=== PATIENT | male | born 1985 | race Caucasian/White ===

== ENCOUNTER 2024-12-25 10:36 | Outpatient (AMB) | payer OTHER, SELFPAY ==
--- OUTSIDE RECORDS SUMMARY | 2024-12-24 08:30 | XMS_ITS | Encounter Summary ---
Author Organization [employer] Address [address] [place] [address] Care Team Providers Care Senior Architect/Design Manager Name Role Phone Ronnie Woods MD Primary Care Provider [phone] Reason for Visit * Reason Comments Follow-up Encounter Details Date Type Department Care Team ([facility] st Contact Info) Description 12/24/2024 8:30 AM EDT Office Visit Internal Medicine - [place] [address] [facility] [address] [place] [id number] Ronnie Woods MD [address] [facility] [address] [place] [address] Type 2 diabetes mellitus without complication, without long-term current use of insulin (CMS/HCC V24, CMS/HCC V28) (Primary Dx); Hypertriglyceridemia Social History Tobacco Use Types Packs/Day Years Used Date Smoking Tobacco: Former Cigarettes 0 2013 - 09/30/2015 Smokeless Tobacco: Never Alcohol Use Standard Drinks/Week Comments No 0 (1 standard drink = 0.6 oz pur e alcohol) Sex and Gender Information Value Date Recorded Sex Assigned at Not on file Legal Sex Male 9:07 AM EST Gender Identity Not on file Sexual Orientation Not on file documented as of this encounter Last Filed Vital Signs Vital Sign Reading Time Taken Comments Blood Pressure 118/60 12/24/2024 8:22 AM EDT Pulse 89 12/24/2024 8:22 AM EDT Temperature 35.7 C (96.3 F) 12/24/2024 8:22 AM EDT Respiratory Rate - - Oxygen Saturation 98% 12/24/2024 8:22 AM EDT Inhaled Oxygen Concentration - - Weight 89.7 kg (197 lb 12.8 oz) 12/24/2024 8:22 AM EDT Height 170.2 cm (5' 7 ) 12/24/2024 8:22 AM EDT Body Mass Index 30.98 12/24/2024 8:22 AM EDT documented in this encounter Ordered Prescriptions Prescription Sig Dispense Quantity Refills Last Filled Start Date End Date acetaminophen (Tylenol Extra Strength) 500 mg tablet Take 1.5 tablets (750 mg total) by mouth every 8 (eight) hours if needed for mild pain for up to 20 days. 60 tablet 3 12/24/2024 documented in this encounter Progress Notes * Ronnie Woods MD - 12/24/2024 8:30 AM EDT COMPLAINT medication review and testing. IDENTIFIER: Rusty Tracy is a 39 y.o. old male. HPI: Diabetes, blood sugars are still high, Shaista just started recently on metformin. Hyperlipidemia ,stable. ROS: GENERAL: No malaise, significant weight loss or fever RESPIRATORY: No cough, wheezing or shortness of breath CARDIOVASCULAR: No chest pain, leg swelling or palpitations GI: No abdominal discomfort, blood in stools or black stools PAST MEDICAL HISTORY: Patient Active Problem List Diagnosis Date Noted GERD (gastroesophageal reflux disease) 02/27/2024 Type 2 diabetes mellitus without complication, without long-term current use of insulin ([facility] V24, [facility] V28) 02/15/2024 Hypertriglyceridemia 02/15/2024 Cerebellar cyst 02/15/2024 Vertigo 02/15/2024 Past Surgical History: Procedure Laterality Date CATARACT EXTRACTION Bilateral HISTORICAL CATARACT REMOVAL OTHER SURGICAL HISTORY 09/18/2023 right posterior fossa craniotomy for resection of cerebellar cyst, Dr. Fraga Path:. Negative for malignancy SOCIAL HISTORY: Social History Tobacco Use Smoking status: Former Current packs/day: 0.00 Types: Cigarettes Start date: 2013 Quit date: 09/30/2015 Years since quittin.2 Smokeless tobacco: Never Substance Use Topics Alcohol use: No FAMILY HISTORY: Family History Problem Relation Name Age of Onset Nephrolithiasis Mother uncle, MEDICATIONS DISCONTINUED/REORDERED: Medications Discontinued During This Encounter Medication Reason gabapentin (NEURONTIN) 100 mg capsule Therapy completed ACTIVE MEDICATIONS: Outpatient Medications Marked as Taking for the 12/24/24 encounter (Office Visit) with Ronnie Woods MD Medication Sig Dispense Refill amitriptyline (ELAVIL) 25 mg tablet Take 1 tablet (25 mg total) by mouth at bedtime. 30 each 11 blood sugar diagnostic (FreeStyle Lite Strips) test strip Check blood sugar twice a day 200 strip 5 blood-glucose meter kit 1 Each by Does not apply route daily. blood-glucose meter kit 1 Each by Does not apply route daily. fenofibrate (TRICOR) 48 mg tablet Take 1 tablet (48 mg total) by mouth 1 (one) time each day. 30 each 5 freestyle (FreeStyle Lancets) 28 gauge lancets To check sugars once daily E11.9 100 each 3 hydrOXYzine HCL (ATARAX) 10 mg tablet Take 1 tablet (10 mg total) by mouth at bedtime as needed foranxiety (insomnia). 30 tablet 3 ibuprofen (ADVIL,MOTRIN) 800 mg tablet TAKE 1 TABLET BY MOUTH EVERY 8 HOURS NEEDED meclizine (ANTIVERT) 12.5 mg tablet Take 1 Tablet by mouth daily as needed (dizziness). melatonin 5 mg capsule Take 1 capsule by mouth at bedtime as needed (insomnia). 30 each 3 metFORMIN (GLUCOPHAGE) 1,000 mg tablet Take 1 Tablet by mouth 2 times daily (with meals). 180 tablet 3 tirzepatide (Mounjaro) 2.5 mg/0.5 mL injection Inject 0.5 mL (2.5 mg total) under the skin every 7 (seven) days. 2 mL 0 ALLERGIES: No Known Allergies PHYSICAL EXAM: Vitals: 12/24/24 0822 BP: 118/60 Pulse: 89 Temp: 35.7 ??C (96.3 ??F) SpO2: 98% APPEARANCE: Alert and in no acute distress EARS: External ears normal. HEART: RRR with normal S1 and S2, no murmurs LUNG: clear to auscultation LABS: No results found for: WBC , HGB , HCT , MCV Lab Results Component Value Date NA 136 12/11/2024 K 4.0 12/11/2024 CO2 27 12/11/2024 CL 104 12/11/2024 BUN 10 12/11/2024 No results found for: TSH Lab Results Component Value Date HGBA1C 10.8 (H) 12/11/2024 CHOL 199 07/03/2024 HDL 37 (L) 07/03/2024 TRIG 295 (H) 07/03/2024 No components found for: URINELEUK , URINENITR , URINEPRO , URINEPH , URINEBLD , URINESG , URINEKET , URINEBILI , URINEGLUC IMAGING: IMPRESSION: 1. Type 2 diabetes mellitus without complication, without long-term current use of insulin ([facility], [facility] V28) 2. Hypertriglyceridemia PLAN: Diabetes ,slow improvement started Mounjaro recently, continue metformin. Hyperlipidemia, stable onTricor. Recent A1c was 10.8. triglycerides 295. documented in this encounter Plan of Treatment Upcoming Encounters Date Type Department Care Team (Late st Contact Info) Description 02/12/2025 10:45 AM EST Office Visit Endocrinology [address] [place] [address] Lilliana Gutiérrez PA [address] [place] [address] documented as of this encounter Goals Goal Patient Goal Type Associated Problems Recent Progress Patient-Stated? Author PT LTG -8 visits General No Makenzie Li PT Note: Patient is able to improve FGA score by 8 points Patient is able to ambulate with straight cane in L UE Patient is able to achieve 5/5 knee flexion and extension strength bilaterally Patient is able to self correct balance when turning to look at various objects in 50ft. 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 Therapy completed 12/24/2024 documented as of this encounter Care Teams Senior Architect/Design Manager Relationship Specialty Start Date End Date Ronnie Woods MD [address] [place] [address] PCP - General 10/10/23 documented as of this encounter
[2024-12-25 11:09] VITALS: BMI 31.3
--- NOTE | 2024-12-25 11:09 | A.OFFVIS_ITS ---
VS Expanded 12/25/24 11:09 01/01/25 10:06 Height 5 ft 7 in 5 ft 7 in Weight 199 lb 15.348 oz 200 lb BMI 31.3 31.3 Intake Visit Reasons: T2DM Nutrition Presentation Details: Pt presents for MNT fort T2DM Pt presens with mother during this appt. Pt admits to increase intake of empty calorie foods however expresses interest in improving diet for gluc control. Reports recent rx for Mounjaro which he started on Monday. food frequency fruit: 0-1/d dairy: 1/d ve/wk (non starchy) starches >30 /d fish :0/wk beverages: water, soda (diet/non), juices etoh/smoking-denies ULZ-Kxczrsu-Xn.Jeor Equation Height: 5 ft 7 in Weight: 200 lb Resting Metabolic Rate: 1783.02 Calculated Activity Level: Sedentary Calories Needed to Maintain Weight: 2139.62 Diagnosis Nutrition problem #1: food nutri know defi As related to (etiology) #1: diagnosis As evidenced by (sign/symptom) #1: knowledge deficit of diet Assessment & Plan Assessment & Plan (1) T2DM (type 2 diabetes mellitus): Code(s): E11.9 - Type 2 diabetes mellitus without complications Category: Medical Plan: current wt: 91 kg ( 12/26) est kcal needs as per MSJ: 2100 est protein needs as per 1 g/kg BW: 90 est fluid needs as per 30 ml/kg BW: 2700 Recommended fiber > 12 g /day and gradually increase up to 25-28 g /day or as tolerated NA< 2300 mg/d Nutrition topics discussed : Reviewed (R), Pt verbalized understanding (V) , not applicable (N/A) R, A : Healthy Plate Method Concept: R, : Carbohydrates: food sources of carbohydrates, relationship of carbohydrates to blood glucose, fatty liver GI health. Recommended total amount of carbohydrates per meals and snack. Differences between simple carbohydrates and complex carbohydrates R, : Lean protein foods including vegan , vegetarian sources of protein. Benefits of protein (including but not limited to healing, nutritional value , benefits in weight loss, glucose control R, V, N/A: Fats : Source of fats, benefits of fats. Difference between saturated and unsaturated fats. Saturated fats and its contribution to inflammation R, V, N/A: Fiber: food sources and role of fiber in the diet (including but not limited to its role as a prebiotic, benefits in constipation, role in IBS , role in glucose control and cholesterol level) R, : Hydration: role of hydration and prevention of dehydration or over hydration. Foods and water content. R, V, N/A: Vitamins and Minerals in foods and supplements R, : Interpreting food labels, including serving size, macronutrients, vitam ins, minerals, allergens, ingredient list , % daily value R, : Mindful eating strategies Patient Instructions: Work on reducing total carb to less than 70 g at meal and combine with lean protein following healthy plate method choose low sugar beverages -see list of options Coding Level of Care Code Nutr Indiv Intake (33126) Diagnoses T2DM (type 2 diabetes mellitus) E11.9 Time Spent (min) 30
--- OUTSIDE RECORDS SUMMARY | 2024-12-25 13:13 | XMS_ITS ---
Author Name [facility] Organization Unknown Care Team Organization Name Specialty Phone Email Start Date End Da te [facility] Asa Weinstein Primary [facility] 02/08/2022 11/20/2023
--- OUTSIDE RECORDS SUMMARY | 2024-12-25 13:13 | XMS_ITS | Clinical Summary ---
Author Organization [facility] Address [address] [place] [address] Care Team Providers Care Log Washer Name Role Phone Unavailable Primary Care Provider Unavailabl e Allergies No known active allergies Medications Medication Sig Dispensed Refills Start Date End Date Status metFORMIN (GLUCOPHAGE) tablet 1000 mg 0 04/09/2019 Active naproxen (NAPROSYN) 500 MG tablet 0 03/14/2019 Active Active Problems No known active problems Family History Medical History Relation Name Comments Diabetes Mother Relation Name Status Comments Mother Social History Tobacco Use Types Packs/Day Years Used Date Smoking Tobacco: Never Smokeless Tobacco: Never Alcohol Use Standard Drinks/Week Comments No 0 (1 standard drink = 0.6 oz pur e alcohol) Sex and Gender Information Value Date Recorded Sex Assigned at Not on file Gender Identity Not on file Sexual Orientation Not on file Job Start Date Occupation Industry Not on file Not on file Not on file Last Filed Vital Signs Vital Sign Reading Time Taken Comments Blood Pressure - - Pulse - - Temperature - - Respiratory Rate - - Oxygen Saturation - - Inhaled Oxygen Concentration - - Weight 114.3 kg (252 lb) 04/30/2019 4:04 PM EST Height 172.7 cm (5' 8 ) 04/30/2019 4:04 PM EST Body Mass Index 38.32 04/30/2019 4:04 PM EST Plan of Treatment Health Maintenance Due Date Last Done Comments Hepatitis B Vaccines (1 of 3 - 3-dose series) 1985 Hepatitis C Screening 1985 COVID-19 Vaccine (#1) 03/31/1986 Pneumococcal Vaccine (1 of 2 - PCV) 09/30/1991 Depression Screening 1997 BMI Counseling 09/30/2003 Preventative Health Evaluation 09/30/2003 DTap / Tdap / Td (1 - Tdap) 2004 Influenza Vaccine (#1) 2024 RSV Ped < 20 months Aged Out No longe r eligible based on patient's age to complete this topic
--- OUTSIDE RECORDS SUMMARY | 2024-12-25 13:13 | XMS_ITS | Clinical Summary ---
Author Organization [address] [facility] Address [address] [place] [address] Phone Care Team Providers Care Glued Wood Tester Name Role Phone Ronnie Woods MD Primary Care Provider [phone] Allergies No known active allergies Medications meclizine (ANTIVERT) 12.5 mg tablet Take 1 Tablet by mouth daily as needed (dizziness). 4 Active ibuprofen (ADVIL,MOTRIN) 800 mg tablet TAKE 1 TABLET BY MOUTH EVERY 8 HOURS NEEDED 4 Active blood-glucose meter kit 1 Each by Does not apply route daily. 4 Active blood-glucose meter kit 1 Each by Does not apply route daily. 4 Active freestyle (FreeStyle Lancets) 28 gauge lancetsIndicatio ns:Type 2 diabetes mellitus with hyperglycemia, without long-term current use of insulin ([facility] V24, [facility] V28) To check sugars once daily E11.9 100 each 3 5 Active melatonin 5 mg capsuleIndicatio ns:Insomnia, unspecified type Take 1 capsule by mouth at bedtime as needed (insomnia). 30 each 3 5 Active hydrOXYzine HCL (ATARAX) 10 mg tabletIndication s:Insomnia, unspecified type Take 1 tablet (10 mg total) by mouth at bedtime as needed for anxiety (insomnia). 30 tablet 3 5 Active amitriptyline (ELAVIL) 25 mg tabletIndication s:Other migraine with status migrainosus, intractable,Inso mnia, unspecified type Take 1 tablet (25 mg total) by mouth at bedtime. 30 each 5 08/24/19 26 Active fenofibrate (TRICOR) 48 mg tabletIndication s:Hypertriglycer idemia Take 1 tablet (48 mg total) by mouth 1 (one) time each day. 30 each 5 5 02/20/20 25 Active blood sugar diagnostic (FreeStyle Lite Strips) test stripIndications :Type 2 diabetes mellitus without complication, with long-term current use of insulin ([facility] V24, [facility] V28) Check blood sugar twice a day 200 strip 5 5 Active metFORMIN (GLUCOPHAGE) 1,000 mg tablet Take 1 Tablet by mouth 2 times daily (with meals). 180 tablet 3 5 Active tirzepatide (Mounjaro) 2.5 mg/0.5 mL injectionIndicat ions:Type 2 diabetes mellitus with hyperglycemia, without long-term current use of insulin ([facility] V24, [facility] V28) Inject 0.5 mL (2.5 mg total) under the skin every 7 (seven) days. 2 mL 5 Active acetaminophen (Tylenol Extra Strength) 500 mg tablet Take 1.5 tablets (750 mg total) by mouth every 8 (eight) hours if needed for mild pain for up to 20 days. 60 tablet 3 5 01/14/20 25 Active metFORMIN (GLUCOPHAGE) 1,000 mg tablet Take 1 Tablet by mouth 2 times daily (with meals). 4 12/14/19 25 Discontinu ed(Reorder ) gabapentin (NEURONTIN) 100 mg capsule Take 1 capsule (100 mg total) by mouth 2 (two) times a day. 12/25/19 25 Discontinu ed(Therapy completed) glipiZIDE (GLUCOTROL XL) 5 mg 24 hr tablet Take 1 tablet by mouth twice daily 60 each 5 5 12/14/19 25 Discontinu ed(Formula ry change) Active Problems Problem Noted Date Diagnosed Date GERD (gastroesophageal reflux disease) 4 Type 2 diabetes mellitus wit hout complication, without long-term current use of insulin ([facility] V24, [facility] V28) 02/15/2024 Hypertriglyceridemia 02/15/2024 Cerebellar cyst 02/15/2024 Assessment & Plan (05/14/2024 10:04 AM EST): Mr. Tracy is benefiting from physical therapy for his gait and balance and he should continue as long as possible. He continues to have right-sided headaches stemming from the area of his incision and craniectomy. So far, he is not had any improvement from the right occipital block but does feel the gabapentin is helping. Encouraged him to follow-up with Dr. Griffiths's office to see if they have anything else to offer and also instructed him on how to increase his dose of gabapentin until he finds what works for him with no side effects, up to 3 tablets 3 times per day. There was no finding on pathology and no need for further surgery. It still unexplained what caused this cerebellar cyst. Assessment & Plan (03/12/2024 11:01 AM EST): Patient is approximately 6 months s/p right posterior fossa craniotomy for resection of cerebellar cyst, Path:. Negative for malignancy. He is still participating in physical therapy twice a week, does feel over time his balance is improving, still walks with a cane and has some dysmetria. He called the office because he has persistent right sided headaches, tenderness palpating right scalp, light sensitivity with the right eye. He would rated his headache 5-6/10. At times when he is bending over his right cheek feels cold. He had brain MRI with and without contrast 03/10/2024, no evidence of recurrent cyst or mass, postop changes right suboccipital craniotomy, small area of encephalomalacia in the right cerebellar hemisphere. I reviewed the March MRI, compared with September MRI with patient and his mother on the computer. Mr. Tracy has had some improvement in his balance and walking, has persistent right sided headache, seems it could be right occipital neuralgia. I will see if Dr. Fraga would be comfortable with him trying an occipital nerve block, since it is near the area of his craniotomy bone window. We also talked about possibly neurology consult for his headache. We talked about trying acupuncture. In physical therapy they can do some massage to the upper trapezius and neck muscles to see if this helps as well. I will call him with an update after reviewing his case with Dr. Fraga. All questions answered. Vertigo 02/15/2024 Encounters Date Type Department Care Team Description 12/24/2024 8:30 AM EDT Office Visit Internal Medicine [facility] [address] [phone] Ronnie Woods MD Type 2 diabetes mellitus without complication, without long-term current use of insulin ([facility] V24, [facility] V28) (Primary Dx); Hypertriglyceridemia 12/13/2024 10:45 AM EDT Office Visit Endocrinology [address] [phone] Lilliana Gutiérrez PA Type 2 diabetes mellitus with hyperglycemia, without long-term current use of insulin ([facility] V24, [facility] V28) (Primary Dx) 11/11/2024 10:00 AM EDT Treatment [address] [phone] Pavithra Arriaza, PT Neurologic gait dysfunction (Primary Dx) 11/04/2024 10:00 AM EDT Treatment [address] [phone] Girish Churchill, SHEET HEATER Cerebellar cyst (Primary Dx); Neurologic gait dysfunction 10/31/2024 10:00 AM EDT Treatment [address] [phone] Pavithra Arriaza, PT Cerebellar cyst (Primary Dx) 10/29/2024 10:00 AM EDT Treatment [address] [phone] Pavithra Arriaza, PT Neurologic gait dysfunction (Primary Dx) 10/25/2024 10:00 AM EDT Treatment [address] [phone] Girish Churchill, SHEET HEATER Vertigo (Primary Dx); Weakness of both lower extremities 10/23/2024 11:30 AM EDT Treatment [address] [phone] Girish Churchill, SHEET HEATER Vertigo (Primary Dx) 10/17/2024 11:30 AM EDT Treatment [facility] [address] [phone] GuybrandtGirish, SHEET HEATER Vertigo (Primary Dx); Weakness of both lower extremities 09/25/2024 10:30 AM EDT Evaluation [address] [phone] SharonkaMakenzie santillan, PT Vertigo; Weakness of both lower extremities from Last 3 Months Immunizations Name Administration Dates Next Due Influenza trivalent, 0.5mL, preservative free (Fluarix; FluLaval; Fluzone) ages 6mo and older (Afluria) 3 years and older 05/27/2016 Tdap Tetanus diptheria acell ular pertussis (Boostrix; Adacel) 7yo and older 05/27/2016 Surgical History Surgery Date Site/Laterality Comments CATARACT EXTRACTION Bilateral HISTORICAL CATARACT REMOVAL OTHER SURGICAL HISTORY 09/18/2023 right posterior fossa craniotomy for resection of cerebellar cyst, Dr. Fraga Path:. Negative for malignancy Medical History Medical History Date Comments GERD (gastroesophageal reflu x disease) DX:GERD (gastroesophageal re flux disease) History of kidney stones DX:Hist ory of kidney stones; COMMENT: right ureteroscopy with laser lithotripsy of 7mm right kidney stone 05/20 Type 2 diabetes mellitus (CM S/HCC V24, CMS/HCC V28) 11/27/2017 DX:Type 2 diabetes mellitus (HCC) Family History Medical History Relation Name Comments Nephrolithiasis Mother uncle, Relation Name Status Comments Mother Social History Tobacco Use Types Packs/Day Years Used Date Smoking Tobacco: Former Cigarettes 0 2013 - 09/30/2015 Smokeless Tobacco: Never Tobacco Cessation:Counseling Given: Not Answered Alcohol Use Standard Drinks/Week Comments No 0 (1 standard drink = 0.6 oz pur e alcohol) Sex and Gender Information Value Date Recorded Sex Assigned at Not on file Legal Sex Male 9:07 AM EST Gender Identity Not on file Sexual Orientation Not on file Obstetrics History Last Filed Vital Signs Vital Sign Reading [...] Mass Index 30.98 12/24/2024 8:22 AM EDT Plan of Treatment Upcoming Encounters Date Type Department Care Team (Late st Contact Info) Description 02/12/2025 10:45 AM EST Office Visit Endocrinology - [place] [address] [place] [phone] Lilliana Gutiérrez PA [address] [place] [address] Health Maintenance Due Date Last Done Comments Diabetes: Annual Foot Exam 09/30/1995 Hepatitis B Vaccines (1 of 3 - 19+ 3-dose series) 2004 Pneumococcal Vaccine: Pediatrics (0 to 5 Years) and At-Risk Patients (6 to 49 Years) (1 of 2 - PCV) 2004 Social Influencers of Health Screening 03/06/2022 Depression Screening 04/03/2024 COVID-19 Vaccine ( season) 2024 Influenza Vaccine (#1) 2024 05/27/2016 Diabetes: Annual Urine Albumin-Creatinine Ratio (uACR) 01/16/2025 01/17/2024 Diabetes: Annual Retina Eye Exam 05/02/2025 05/02/2024 Diabetes: Blood Sugar Control Test (HGBA1C) 06/10/2025 12/11/2024, 07/03/2024, 01/17/2024, Additional history exists Diabetes: Annual GFR (Glomerular Filtration Rate) 12/11/2025 12/11/2024, 01/17/2024, 01/17/2024 DTaP,Tdap,and Td Vaccines (2 - Td or Tdap) 05/27/2026 05/27/2016 Cholesterol Screening (Lipid Panel) 07/03/2029 07/03/2024, 01/17/2024, 01/17/2024, Additional history exists RSV Immunization Adult Patients (1 - 1-dose 75+ series) 2060 HIV Screening Completed 01/17/2024 Hepatitis C Screening Completed 01/17/2024 HIB Vaccines Aged Out No longer eligi ble based on patient's age to complete this topic HPV Vaccines Aged Out No longer eligi ble based on patient's age to complete this topic Hepatitis A Vaccines Aged Out No long er eligible based on patient's age to complete this topic IPV Vaccines Aged Out No longer eligi ble based on patient's age to complete this topic MMR Vaccines Aged Out No longer eligi ble based on patient's age to complete this topic Meningococcal ACWY Vaccine Aged Out N o longer eligible based on patient's age to complete this topic Meningococcal B Vaccine Aged Out No l onger eligible based on patient's age to complete this topic RSV Immunization Patients Under 20 months Aged Out No longer eligible based on patient's age to complete this topic Varicella Vaccines Aged Out No longer eligible based on patient's age to complete this topic Goals Goal Patient Goal Type Associated Problems Recent Progress Patient-Stated? Author PT LTG -8 visits General No Makenzie Li, KYA Note: Patient is able to improve FGA score by 8 points Patient is able to ambulate with straight cane in L UE Patient is able to achieve 5/5 knee flexion and extension strength bilaterally Patient is able to self correct balance when turning to look at various objects in 50ft. 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 V24, [facility] V28) BASIC METABOLIC PANEL Routine 12/11/2024 8:43 AM EDT Type 2 diabetes mellitus with hyperglycemia, without long-term current use of insulin ([facility] V24, [facility] V28) HEMOGLOBIN A1C Routine 12/11/2024 8:43 AM EDT Type 2 diabetes mellitus with hyperglycemia, without long-term current use of insulin ([facility] V24, [facility] V28) LIPID PANEL WITH REFLEX TO DIRECT LDL Routine 07/03/2024 9:45 AM EDT Hypertriglyceridemi a EXTERNAL DIABETIC RETINA EYE EXAM 05/02/2024 HM HEPATITIS C SCREENING Routine 01/17/2024 HM URINE ALBUMIN CREATININE RATIO Routine 01/17/2024 from Last 3 Months or Most Recently Relevant to Health Maintenance Results * POC glucose manually resulted (12/13/2024 11:04 AM EDT) Glucose POC 328 mg/dL Blood Capillary blood specimen / Unknown 12/13/2024 11:04 AM EDT us Lilliana [facility] POINT OF CARE TEST ENTER/ED IT ORDERABLES Final Result * (ABNORMAL) Hemoglobin A1c (12/11/2024 8:43 AM EDT) Hemoglobin A1C 10.8(H) <6.5 % LAB CHEMISTRY METHOD 12/11/2024 2:09 PM EDT [facility] Mean Bld Glu Estim. 263 mg/dL LAB CHEMISTRY METHOD 12/11/2024 2:09 PM EDT [facility] Blood Venous blood specimen / Unknown Venipuncture / Unknown 12/11/2024 8:43 AM EDT 12/11/2024 8:43 AM EDT us Patricia [facility] BLOOD ORDERABLES Final Resul t [facility] [address] [place] [address], * (ABNORMAL) Basic metabolic panel (12/11/2024 8:43 AM EDT) Sodium 136 133 - 145 mmol/L LAB CHEMISTRY METHOD 12/11/2024 10:33 AM T [facility] Potassium 4.0 3.5 - 5.5 mmol/L LAB CHEMISTRY METHOD 12/11/2024 10:33 AM [facility] Chloride 104 96 - 110 mmol/L LAB CHEMISTRY METHOD 12/11/2024 10:33 AM [facility] CO2 27 21 - 32 mmol/L LAB CHEMISTRY METHOD 12/11/2024 10:33 AM [facility] Anion Gap 5 3 - 11 LAB CHEMISTRY METHOD 12/11/2024 10:33 AM [facility] Glucose 187(H) 70 - 100 mg/dL LAB CHEMISTRY METHOD 12/11/2024 10:33 AM [facility] BUN 10 5 - 25 mg/dL LAB CHEMISTRY METHOD 12/11/2024 10:33 AM [facility] Creatinine 0.76 0.70 - 1.30 mg/dL LAB CHEMISTRY METHOD 12/11/2024 10:33 AM [facility] eGFR 117 >=60 mL/min/1. 73m2 LAB CHEMISTRY METHOD 12/11/2024 10:33 AM [facility] Comment:Calculation based on the Chronic Kidney Disease Epidemiology Collaboration (CKD-EPI) equation refit without adjustment for race. BUN/Creatinine Ratio 13.2 LAB CHEMISTRY METHOD 12/11/2024 10:33 AM [facility] Calcium 9.3 8.5 - 10.5 mg/dL LAB CHEMISTRY METHOD 12/11/2024 10:33 AM [facility] Blood Venous blood specimen / Unknown Venipuncture / Unknown 12/11/2024 8:43 AM EDT 12/11/2024 8:43 AM EDT us Patricia [facility] BLOOD ORDERABLES Final Resul t Performing Organization Address [facility]/ZIP Co de Phone Number [facility] [address] [place] [address], [place] [phone] * (ABNORMAL) Lipid panel with reflex to direct LDL (07/03/2024 9:45 AM EDT) Cholesterol 199 0 - 200 mg/dL LAB CHEMISTRY METHOD 07/03/2024 2:43 PM EDT [facility] Triglycerides 295(H) 0 - 150 mg/dL LAB CHEMISTRY METHOD 07/03/2024 2:43 PM EDT [facility] HDL 37(L) >=40 mg/dL LAB CHEMISTRY METHOD 07/03/2024 2:43 PM EDT [facility] LDL Calculated 103(H) 0 - 100 mg/dL LAB CHEMISTRY METHOD 07/03/2024 2:43 PM EDT [facility] VLDL Cholesterol Bradley 59 mg/dL LAB CHEMISTRY METHOD 07/03/2024 2:43 PM EDT [facility] Non HDL Chol. (LDL+VLDL) 162(H) <145 mg/dL LAB CHEMISTRY METHOD 07/03/2024 2:43 PM EDT [facility] Chol/HDL Ratio 5.4(H) 0.0 - 4.4 LAB CHEMISTRY METHOD 07/03/2024 2:43 PM EDT [facility] Blood Venous blood specimen / Unknown Venipuncture / Unknown 07/03/2024 9:45 AM EDT 07/03/2024 9:45 AM EDT us Mirza Kent NP LAB BLOOD ORDERABLES Final Resul t [facility] [address] [place] [address], [place] [phone] * External Diabetic Retina Eye Exam Report (05/02/2024) Anatomical Region Laterality Modality Ultrasound Provider [facility] US PROCEDURES Final Result * Urine Albumin Creatinine Ratio (01/17/2024) Urine Albumin Creatinine Ratio abstracted Historical Provider HEALTH MAINTENANCE Final Result * Hepatitis C Screening (01/17/2024) Hepatitis C Screening abstracted Result [facility] Historical Provider HEALTH MAINTENANCE Final Result from Last 3 Months or Most Recently Relevant to Health Maintenance Insurance [facility] [place] [address] Care Teams Glued Wood Tester Relationship Specialty Start Date End Date Ronnie Woods MD [address] [facility] [address] [place] [address] PCP - General 10/10/23
[2025-01-01 10:06] VITALS: BMI 31.3
== END 2024-12-25 11:50 | disposition home or self-care (01) ==
LOC: HO.ENCR 10:36
PROVIDERS: PCP Nurse Practitioner; Visit Provider Dietitian, Registered
DX: E11.9 Type 2 diabetes mellitus without complications (principal)

== ENCOUNTER → 2024-12-25 10:36 | Outpatient (BNVA) | payer OTHER, SELFPAY | PROVIDERS: PCP Nurse Practitioner; Visit Provider Dietitian, Registered | DX: E11.9 Type 2 diabetes mellitus without complications (principal); Z71.3 Dietary counseling and surveillance | CPT/HCPCS: 97802 ==